=== PATIENT | female | born 2000 | race Caucasian/White ===

== ENCOUNTER 2018-06-22 09:45 | Emergency (ER) | payer SELFPAY ==
[~2018-06-22] VITALS: Ht 165.1 cm; Wt 73.0 kg
--- NOTE | 2018-06-22 10:02 | NUR ---
First contact with pt. Pt c/o mid abd pain, N/V x1 week. Pt denies pain with urination, states normal BMs. Pt placed in gown, positioned for comfort in bed. Continuous oxygen and BP monitors applied, all safety measures observed. Dr. Franz at bedside to evaluate pt.
[2018-06-22] MEDS ORDERED: FAMOTIDINE 20 MG/2 ML ONE (10:08)
[2018-06-22] MEDS ORDERED: ONDANSETRON 2MG/ML, 2ML ONE (10:08)
--- NOTE | 2018-06-22 10:14 | NUR ---
RECEIVED BEDSIDE REPORT FROM ELOISA YOUNGBLOOD. PT RESTING ON [facility]. MEDICATED PER JUN. TAKEN TO XR IS STABLE CONDITION.
[2018-06-22] MEDS ORDERED: ACETAMINOPHEN 500 MG TABLET PO ONE (10:30)
[2018-06-22] MEDS ORDERED: SODIUM CHLORIDE 0.9% 1,000ML IVBOLUS ONE (10:30)
[2018-06-22] MEDS ORDERED: ONDANSETRON 2MG/ML, 2ML IVPush ONE (10:30)
[2018-06-22] MEDS ORDERED: FAMOTIDINE 20 MG/2 ML IVP ONE (10:30)
[2018-06-22] MEDS ORDERED: SODIUM CHLORIDE FLUSH 10ML SYR IVF ONE (10:30)
[2018-06-22 10:34] LABS: BASOPHILS # (AUTO) 0.02 x10^3/uL (0-0.3); BASOPHILS % (AUTO) 0 % (0-1); EOSINOPHILS # (AUTO) 0.02 x10^3/uL (0-0.8); EOSINOPHILS % (AUTO) 0 % (1-7); LYMPHOCYTES # (AUTO) 1.17 x10^3/uL (1-6.1); LYMPHOCYTES % (AUTO) 9 % (22-44); MD NO; MEAN CORPUSCULAR HEMOGLOBIN 29.2 pg (27.0-34.8); MEAN CORPUSCULAR HGB CONC 33.9 g/dL (32.4-35.8); MEAN CORPUSCULAR VOLUME 86.3 fL (80-100); MONOCYTES # (AUTO) 1.11 x10^3/uL (0-1.4); MONOCYTES % (AUTO) 9 % (2-9); NEUTROPHILS # (AUTO) 10.55 x10^3/uL (1.8-8.0); NEUTROPHILS % (AUTO) 82 % (42-75); PLATELET COUNT 239 x10^3/uL (130-400); RED BLOOD COUNT 4.65 x10^6/uL (3.82-5.3); RED CELL DISTRIBUTION WIDTH 12.1 % (9.6-15.2)
[2018-06-22] MEDS ORDERED: ACETAMINOPHEN 500 MG TABLET ONE (10:35)
[2018-06-22 10:44] LABS: ALBUMIN 4.1 g/dL (3.4-5.0); ANION GAP 8 mmol/L (5-15); CHLORIDE 106 mmol/L (98-107)
[2018-06-22 10:51] LABS: ALANINE AMINOTRANSFERASE 13 U/L (12-78); ALKALINE PHOSPHATASE 73 U/L (45-117); BILIRUBIN,TOTAL 0.7 mg/dL (0.2-1.0); CREATININE 0.85 mg/dL (0.55-1.02); TOTAL PROTEIN 8.9 g/dL (6.4-8.2)
[2018-06-22 11:28] LABS: MICROSCOPIC INDICATED
[2018-06-22] MEDS ORDERED: IBUPROFEN 200 MG TABLET ONE (11:40)
[2018-06-22 11:43] LABS: CULTURE INDICATED? YES
--- NOTE | 2018-06-22 11:46 | NUR ---
PT RESTING ON [facility]. [facility]. TEMP NOTED TO BE 101.4. MEDICATED PER JUN.
[2018-06-22] MEDS ORDERED: IBUPROFEN 200 MG TABLET PO ONE (12:00)
--- NOTE | 2018-06-22 12:00 | NUR ---
REPORT GIVEN TO ELOISA WILLIS.
--- NOTE | 2018-06-22 12:00 | NUR ---
report received at bedside from ELOISA Chilel.
[2018-06-22 12:46] VITALS: BP 122/79
--- NOTE | 2018-06-22 12:47 | NUR ---
results and POC reviewed with pt and her mother by VICK Franz. pt is a&o, resps even and unlabored. no n/v at this time. piv dc'd with tip intact. pt given dc instructions and script. pt educated regarding omnicef and zofran rx. pt amb to dc desk with steady gait. trace.
== END 2018-06-22 12:48 | disposition home or self-care (01) ==
LOC: ED 09:56
DX: R10.33 Periumbilical pain (principal); R11.2 Nausea with vomiting, unspecified; E86.0 Dehydration
CPT/HCPCS: 36415; 74021; 80053; 81001; 83690; 84703; 85025; 87077; 87086; 96361; 96374; 96375; 99284; J2405; J3490; J7030; 87186